=== PATIENT | female | born 1950 | race Caucasian/White ===

== ENCOUNTER 2017-02-01 01:33 | Emergency (ER) | payer OTHER ==
--- NOTE | 2017-02-01 01:48 | EDPHY ---
H & P Stated Complaint: allergic rxn of uncertain origin HPI/ROS: HPI CHIEF COMPLAINT: Allergic reaction HISTORY OF PRESENT ILLNESS: This patient very pleasant 58-year-old female, she presents emergency room by private vehicle around 2:00 a.m. for an allergic reaction. Patient states that earlier today she had an allergic reaction to what she thinks is the study drug that she is taking for a nitrite study. Patient states she has been taking this nitrite/placebo medication as she is enrolled at the [facility] in the study and taking nitrites even as affect on vasculature. She states around 2:30 p.m. today she had allergic reaction she went [facility] where she was given Benadryl and Zantac the reaction resolved and she went home. Approximately an hour ago when she woke up with itching all over and noticed urticaria to her left arm. She has not had any trouble breathing no trouble swallowing no nausea vomiting no chest pain no shortness of breath. She cannot think of any other Innoculations for allergic reaction. Past Medical History: No significant pertinent medical history Past Surgical History: no significant recent surgical history Social History: Denies daily use of drugs alcohol tobacco products Family History: noncontributory ROS REVIEW OF SYSTEMS: A comprehensive 10 point review of systems is otherwise negative aside from elements mentioned in the history of present illness. Exam Constitutional triage nursing summary reviewed, vital signs reviewed, awake/ alert. Eyes normal conjunctivae and sclera, EOMI, PERRLA. HENT normal inspection, atraumatic, moist mucus membranes, no epistaxis, neck supple/ no meningismus, no raccoon eyes. Respiratory clear to auscultation bilaterally, normal breath sounds, no respiratory distress, no wheezing. Cardiovascular rate normal, regular rhythm, no murmur, no edema, distal pulses normal. Gastrointestinal soft, non-tender, no rebound, no guarding, normal bowel sounds, no distension, no pulsatile mass. Genitourinary no CVA tenderness. Musculoskeletal no midline vertebral tenderness, full range of motion, no calf swelling, no tenderness of extremities, no meningismus, good pulses, neurovascularly intact. Skin Diffuse erythema, there is urticaria to the left arm, no blistering, no petechiae, no purpura Neurologic awake, alert and oriented x 3, AAOx3, moves all 4 extremities equally, motor intact, sensory intact, CN II-XII intact, normal cerebellar, normal vision, normal speech. Psychiatric normal mood/affect. Heme/Lymph/Immune no lymphadenopathy. Differential Diagnosis: includes but is not limited to in a particular order allergic reaction, anaphylaxis, medication adverse effect, allergic reaction, SJS, TEN, Methemoglobinemia. Medical Decision Making: Will establish IV, Iv Fluid Bolus NS. IV solumedrol, IV Pepcid, IV benadryl. Watch for Worsening reaction. Re-evaluation: 0209: Spoke With [facility], Dr. Helton, She has been taking NaNitrite. He saw her today and treated for allergic reaction with Benadryl and Zantac the patient improved and she went home. He also tells me that he checked her for methemoglobin anemia and that she was normal for this. He has no other further recommendations at this time. He feels that it may not be the study drug causing her allergic reaction. 0540: Re-examination at this time this patient is resting comfortably no acute distress she has not had any further signs of allergic reaction specifically has been no further signs of erythema, urticaria, trouble breathing, trouble swallowing, nausea, vomiting, diarrhea, chest pain, shortness of breath, or progression of allergic reaction she has remained stable she has been watched here for 4 hours. She would like to go home. I have given her strict return precautions she understands what to return to the emergency room for which includes return of allergic reaction worsening allergic reaction she understands she 1 needs to follow up with an security developer to follow up with primary care doctor 3 get her Benadryl and prednisone and epinephrine filled. She understands strict return precautions she understands return to the ER if she administers epinephrine or has any further signs of allergic reaction. Source: Patient - Medical/Surgical History Hx Asthma: No Hx Chronic Respiratory Disease: No Hx Diabetes: No Hx Cardiac Disease: No Hx Renal Disease: No Hx Cirrhosis: No Hx Alcoholism: No Hx HIV/AIDS: No Hx Splenectomy or Spleen Trauma: No Other PMH: hypertension, skin graft, basal cell/squamous cell removal, bilat cataract surg - Social History Smoking Status: Never smoked Constitutional: Initial Vital Signs Temperature (C) 36.4 C 02/01/17 01:36 Heart Rate 95 02/01/17 01:36 Respiratory Rate 16 02/01/17 01:36 Blood Pressure 130/81 H 02/01/17 01:36 O2 Sat (%) 97 02/01/17 01:36 O2 Delivery Mode Room Air Allergies/Adverse Reactions: spider venom Allergy (Verified 02/01/17 01:40) bee stings Allergy (Uncoded 02/01/17 01:40) Home Medications: Medication Instructions Recorded EPINEPHRINE [EPIPEN] 0.3 mg IM ONCE #2 syr 02/01/17 Nitrite 02/01/17 diphenhydrAMINE [Benadryl 25 MG 25 mg PO BID #6 tab 02/01/17 (*)] predniSONE 60 mg PO DAILY #9 tab 02/01/17 Medical Decision Making - Data Points Laboratory Results: Laboratory Results 02/01/17 02:00 02/01/17 02:00 02/01/17 02/01/17 02/01/17 02:20 02:00 02:00 WBC 11.06 10^3/uL H 10^3/uL (3.80-9.50) RBC 5.18 10^6/uL 10^6/uL (4.18-5.33) Hgb 16.3 g/dL g/dL (12.6-16.3) Hct 45.6 % % (38.0-47.0) MCV 88.0 fL fL (81.5-99.8) MCH 31.5 pg pg (27.9-34.1) MCHC 35.7 g/dL g/dL (32.4-36.7) RDW 12.9 % % (11.5-15.2) Plt Count 296 10^3/uL 10^3/uL (150-400) MPV 9.7 fL fL (8.7-11.7) Neut % (Auto) 63.9 % % (39.3-74.2) Lymph % (Auto) 28.6 % % (15.0-45.0) Tift % (Auto) 6.1 % % (4.5-13.0) Eos % (Auto) 0.7 % % (0.6-7.6) Baso % (Auto) 0.2 % L % (0.3-1.7) Nucleat RBC Rel Count 0.0 % % (0.0-0.2) Absolute Neuts (auto) 7.07 10^3/uL H 10^3/uL (1.70-6.50) Absolute Lymphs (auto) 3.16 10^3/uL H 10^3/uL (1.00-3.00) Absolute Monos (auto) 0.68 10^3/uL 10^3/uL (0.30-0.80) Absolute Eos (auto) 0.08 10^3/uL 10^3/uL (0.03-0.40) Absolute Basos (auto) 0.02 10^3/uL 10^3/uL (0.02-0.10) Absolute Nucleated RBC 0.00 10^3/uL 10^3/uL (0-0.01) Immature Gran % 0.5 % % (0.0-1.1) Immature Gran # 0.05 10^3/uL 10^3/uL (0.00-0.10) Methemoglobin 0.6 % % (0.5-1.5) Sodium 139 mEq/L mEq/L (134-144) Potassium 4.1 mEq/L mEq/L (3.5-5.2) Chloride 104 mEq/L mEq/L (97-110) Carbon Dioxide 25 mEq/l mEq/l (22-31) Anion Gap 10 mEq/L mEq/L (8-16) BUN 21 mg/dL mg/dL (7-23) Creatinine 1.0 mg/dL mg/dL (0.6-1.0) Estimated GFR 55 Glucose 116 mg/dL H mg/dL (70-100) Calcium 9.2 mg/dL mg/dL (8.5-10.4) Medications Given: Discontinued Medications Diphenhydramine HCl (Benadryl Injection) 50 mg IVP EDNOW ONE Stop: 02/01/17 01:55 Last Admin: 02/01/17 02:27 Dose: 50 mg Famotidine (Pepcid) 20 mg IVP EDNOW ONE Stop: 02/01/17 01:56 Last Admin: 02/01/17 02:28 Dose: 20 mg Sodium Chloride (Ns) 1,000 mls @ 0 mls/hr IV ONCE ONE PRN Reason: Wide Open Stop: 02/01/17 01:55 Last Admin: 02/01/17 02:00 Dose: 1,000 mls Methylprednisolone Sodium Succinate (Solu-Medrol) 125 mg IVP EDNOW ONE Stop: 02/01/17 01:55 Last Admin: 02/01/17 02:28 Dose: 125 mg Departure - Departure Disposition: Home, Routine, Self-Care Clinical Impression: Allergic reaction Qualifiers: Encounter type: initial encounter Qualified Code(s): T78.40XA - Allergy, unspecified, initial encounter Condition: Good Instructions: Urticaria (ED), Allergies (ED), Anaphylaxis (ED) Additional Instructions: 1. Return immediately to the emergency room if he develops any worsening symptoms or further signs of allergic reaction or you do not feel well. 2. take prednisone 60 mg for the next 3 days as well as Benadryl 25 mg twice a day for the next 3 days. 3.Do not take your study medication 4.Please follow up with her primary care doctor and may also need to see an security developer. 5. I have also prescribed do an epinephrine pen for severe allergic reaction if you administer this call 911 and come to the hospital immediately by ambulance. Referrals: Joaquina Milian MD [Primary Care Provider] - As per Instructions Prescriptions: diphenhydrAMINE [Benadryl 25 MG (*)] 25 mg PO BID #6 tab EPINEPHRINE [EPIPEN] 0.3 mg IM ONCE #2 syr predniSONE 60 mg PO DAILY #9 tab
[2017-02-01] MEDS ORDERED: methylPREDNISolone SOD SUCC 125 MG/2 ML VIAL IVP ONE (01:54)
[2017-02-01] MEDS ORDERED: NS 1,000 ML IV ONE (01:54)
[2017-02-01] MEDS ORDERED: FAMOTIDINE 20 MG/2 ML SDV IVP ONE (01:55)
[2017-02-01 02:07] LABS: % IMMATURE GRANULYOCYTES 0.5 % (0.0-1.1); ABSOLUTE IMMATURE GRANULOCYTES 0.05 10^3/uL (0.00-0.10); ADD DIFF? NO; ADD MORPH? NO; ADD SCAN? NO; ATYPICAL LYMPHOCYTE FLAG 20 (0-99); FRAGMENT RBC FLAG 0 (0-99); HEMATOCRIT 45.6 % (38.0-47.0); HEMOGLOBIN 16.3 g/dL (12.6-16.3); LEFT SHIFT FLG 0 (0-99); LIPEMIA HEMOLYSIS FLAG 90 (0-99); MEAN CELL HEMOGLOBIN 31.5 pg (27.9-34.1); MEAN CELL HEMOGLOBIN CONCENTR. 35.7 g/dL (32.4-36.7); MEAN PLATELET VOLUME 9.7 fL (8.7-11.7); PLATELET CLUMPS FLAG 0 (0-99); PLATELET COUNT 296 10^3/uL (150-400); RED BLOOD CELL COUNT 5.18 10^6/uL (4.18-5.33); RED CELL DISTRIBUTION WIDTH 12.9 % (11.5-15.2)
[2017-02-01 02:29] LABS: ANION GAP 10 mEq/L (8-16); CALCIUM 9.2 mg/dL (8.5-10.4); CARBON DIOXIDE 25 mEq/l (22-31); CHLORIDE 104 mEq/L (97-110); GLOMERULAR FILTRATION RATE 55; GLUCOSE 116 mg/dL (70-100); POTASSIUM 4.1 mEq/L (3.5-5.2); SODIUM 139 mEq/L (134-144)
[2017-02-01 04:04] VITALS: RESP 12
[2017-02-01 06:05] VITALS: BP 146/83; PULSE 92; TEMP 97.7; O2SAT 95
== END 2017-02-01 05:54 | disposition home or self-care (01) ==
DX: T78.40XA Allergy, unspecified, initial encounter (principal); I10 Essential (primary) hypertension; Z85.828 Personal history of other malignant neoplasm of skin
CPT/HCPCS: 96361; 96374; 96375; 99284; J1200

== ENCOUNTER → 2018-09-27 | Outpatient (CLI) | payer OTHER | LOC: BMCIMAGING 13:25 | PROVIDERS: ATTEND Family Medicine | DX: Z12.31 Encounter for screening mammogram for malignant neoplasm of breast (principal); Z80.3 Family history of malignant neoplasm of breast ==

== ENCOUNTER → 2019-02-28 | Outpatient (CLI) | payer OTHER | LOC: FIMAGING 09:08 | PROVIDERS: ATTEND Family Medicine | DX: Z13.820 Encounter for screening for osteoporosis (principal); M81.0 Age-related osteoporosis without current pathological fracture; Z78.0 Asymptomatic menopausal state ==